=== PATIENT | male | born 1980 | race American Indian/Alaskan Native ===

== ENCOUNTER 2022-05-23 12:45 | Emergency (ER) | payer MEDICAID, OTHER ==
[2022-05-23 14:27] VITALS: BP 106/75
[2022-05-23] MEDS ORDERED: KETOROLAC 10 MG TAB PO ONE (18:01)
[2022-05-23] MEDS ORDERED: HYDROcodone/ACETAMINOPHEN 5-325 MG TAB PO ONE (18:01)
[2022-05-23] MEDS ORDERED: CYCLOBENZAPRINE 10 MG TAB PO ONE (18:01)
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
== END 2022-05-23 18:58 | disposition home or self-care (01) ==
LOC: ED 12:45
DX: R52 Pain, unspecified (principal); V89.2XXA Person injured in unspecified motor-vehicle accident, traffic, initial encounter; Y93.89 Activity, other specified; Y92.89 Other specified places as the place of occurrence of the external cause; Y99.8 Other external cause status
CPT/HCPCS: 99282